=== PATIENT | female | born 1990 | race Caucasian/White ===

== ENCOUNTER 2022-05-10 09:12 | Emergency (ER) | payer MEDICAID, SELFPAY ==
[2022-05-10 09:42] VITALS: BP 105/74; PULSE 84; RESP 16; TEMP 36.6; O2SAT 96; BMI 26.6
--- NOTE | 2022-05-10 11:28 | W.ED.BACK ---
HPI - Back Pain/Injury General: Chief Complaint: Back Pain/Injury Stated Complaint: back pain Time Seen by Provider: 05/10/22 09:14 History of Present Illness: Patient is a 32-year-old female who comes in the ED with lower back pain. Symptoms initially started about 2 months ago and have continued to progress. She states that over the past 4 days her lower back pain is gotten a lot worse and now is radiating down into her right leg. Denies any trauma or injury to cause pain. She rates her pain currently an 8 out of 10. Denies any weakness to lower extremities, pelvic anesthesia or any bladder or bowel incontinence. Associated symptoms: Deny abdominal pain, chills, dysuria, fatigue, fever(s), hematuria, nausea or vomiting Review of Systems Const: Denies: fever(s), chills or fatigue Eyes: Denies: change in vision or eye discomfort ENMT: Denies: throat pain, odynophagia, nasal discharge or nasal congestion Card: Denies: chest pain, palpitations, edema, swelling of feet/ankles, dyspnea on exertion or orthopnea Resp: Denies: dyspnea, productive cough or non-productive cough GI: Denies: abdominal pain, nausea, vomiting, diarrhea, constipation or hematochezia : Denies: flank pain, dysuria or hematuria Musc: Reports: back pain (Lower back pain); Denies: neck pain or extremity swelling Skin/Breast: Denies: rash or new lesions Neuro: Denies: headache(s), numbness in extremities or weakness in extremities PFS ED PFSH: Medical History (Updated 05/10/22 @ 16:04 by RAQUEL Rodriguez) No pertinent family history Surgical History (Updated 05/10/22 @ 16:04 by RAQUEL Rodriguez) No pertinent past surgical history Physical Exam Const: COMMON NORMALS: patient oriented x3 and alert GENERAL APPEARANCE: cooperative HENMT: COMMON NORMALS: normocephalic HEAD & SCALP: normocephalic MOUTH: Normal oral and palatal mucosa present THROAT: posterior oropharynx normal and uvula midline Eye: COMMON NORMALS: Equal, round and reactive pupils present and conjunctivae normal CONJUNCTIVA: Yes conjunctivae normal PUPIL: Yes Equal, round and reactive pupils present Neck/C-Spine: COMMON NORMALS: supple GENERAL: Yes normal visual inspection Resp: COMMON NORMALS: normal respiratory effort, No retractions, No use of accessory muscles and clear to auscultation bilaterally AUSCULTATION: clear to auscultation bilaterally Cardio: COMMON NORMALS: regular rate, regular rhythm, S1 normal heart sound present, S2 normal heart sound present, No gallops present (Cardio), No clicks present (Cardio), No murmurs present (Cardio) and Peripheral pulses 2+ throughout RATE: regular rate RHYTHM: regular rhythm HEART SOUNDS: S1 normal heart sound present and S2 normal heart sound present PERIPHERAL PULSES: Peripheral pulses 2+ throughout GI: COMMON NORMALS: Normal to inspection, nondistended, normoactive bowel sounds present, Soft to palpation, non-tender and no masses PALPATION: Yes Soft to palpation : COMMON NORMALS: Yes no CVA tenderness BLADDER/KIDNEY EXAM: Yes no CVA tenderness Back/Pelvis: COMMON NORMALS: no CVA tenderness LUMBAR SPINE/LOWER BACK: Yes pain with ROM, No lumbar spinal tenderness and Yes paraspinal muscle tenderness Lumbar paraspinal muscle tenderness: right Extremity: COMMON NORMALS: normal to inspection Neuro: COMMON NORMALS: patient oriented x3 SENSORIUM/ORIENTATION: Yes alert GAIT: Yes Normal gait present Skin: GENERAL SKIN EXAM: dry skin Course Vital Signs: Vital signs: Vital Signs Temperature 97.8 F 05/10/22 09:42 Pulse Rate 84 05/10/22 09:42 Respiratory Rate 16 05/10/22 09:42 Blood Pressure 105/74 05/10/22 09:42 Pulse Oximetry 96 05/10/22 09:42 Oxygen Delivery Me thod 05/10/22 09:42 MDM - Back Pain/Injury Medical Decision Making Patient is a 32 old female comes in ED with lower back pain radiates down the right leg. Denies any known injury or trauma to cause pain. Denies cauda equina symptoms. He appears nontoxic in no acute distress. She has right paraspinal muscle tenderness. Rest of exam is benign. She was diagnosed with lumbar radiculopathy and given a dose of Toradol, Norflex and steroid here in the ED. She was discharged home with a prescription for Medrol Dosepak, muscle relaxer and Celebrex. Return to ED precautions given. Follow-up with PCP in the next week for reevaluation. Patient understood and agreed with plan. Discharge Plan Discharge Patient Disposition: Home Clinical Impression: Lumbar radiculopathy Condition: Stable Prescriptions: New Celebrex 100 mg capsule 100 mg PO BID PRN (Reason: pain) Qty: 30 0RF methocarbamol 750 mg tablet 750 mg PO Q8H PRN (Reason: Back muscle spasms and pain) Qty: 30 0RF Medrol (Keshav) 4 mg tablets,dose pack See Rx Instructions .ROUTE .COMPLEX Qty: 21 0RF Rx Instructions: orally per package directions Discharge Orders: Discharge ED (Routine); Ordered 05/10/22 Ordered By: Adalberto Segura Discharge Diet: Regular Discharge Activity: Increase activity as tolerated Patient Instructions: Lumbar Radiculopathy (ED) Activity Restrictions/Additional Instructions: Follow-up with medical provider as directed in the next 7 to 10 days for reevaluation. Take medications as prescribed. You can start taking the first dose of steroid tomorrow since she received injection dose today. Return to the ER or your medical provider if condition worsens. Please read and understand discharge instructions. Thank you for choosing [facility] for your healthcare needs today. Please realize this is an emergency room and that we are providing you with a medical screening exam and this may not be complete and all inclusive of all the testing and or work up that you may need to determine your ailment or severity of your illness. It is very important that you follow up as instructed or that you return to the Emergency Department should you have concerns or if your condition changes or worsens in any way. Coding Level of Care Code ED Technical Sales Representative for Jessenia Powell Exam Comprehensive
[2022-05-10] MEDS: orphenadrine 30 mg/mL Inj 2 mL 60 MG IM (11:44)
[2022-05-10] MEDS: ketorolac 60 mg/2 mL INJ IM (11:44)
[2022-05-10] MEDS: ondansetron 4 MG Tablet PO (12:02)
== END 2022-05-10 12:05 | disposition home or self-care (01) ==
PROVIDERS: Emergency Provider Physician Assistant
DX: M54.16 Radiculopathy, lumbar region (principal)
CPT/HCPCS: 96372; 99284; J1885; J2360; J2930; Q0162

== ENCOUNTER 2022-05-14 12:49 | Outpatient (CLI) | payer MEDICAID, SELFPAY ==
--- NOTE | 2022-05-14 13:01 | XR_ITS ---
WS: [id number] XR lumbar spine 6V w f/e [id number] REASON FOR EXAM: LUMBAR BACK PAIN W/RADICULOPATHY FINDINGS: Minimal rotatory scoliosis convex right. Minimal straightening of the lordosis. No significant vertebral body abnormality. Mild narrowing of the L5-S1 disc space. Mild degenerative changes in the facet joints at L5-S1. No significant listhesis. XR/XR lumbar spine 6V w f/e [id number] IMPRESSION: Mild degenerative spondylosis of the lumbar spine as above.
== END 2022-05-14 12:50 | disposition home or self-care (01) ==
PROVIDERS: PCP Nurse Practitioner Family; Visit Provider Nurse Practitioner Family
DX: M54.16 Radiculopathy, lumbar region (principal); M47.816 Spondylosis without myelopathy or radiculopathy, lumbar region
CPT/HCPCS: 72114

== ENCOUNTER 2022-05-27 09:27 | Outpatient (CLI) | payer MEDICAID, SELFPAY ==
--- NOTE | 2022-05-27 09:36 | MR_ITS ---
WS: [id number] MRI LUMBAR SPINE NONCONTRAST HISTORY: BACK PAIN W/LUMBAR RADICULOPATHY COMPARISON: Radiographs 05/14/2022 TECHNIQUE: Sagittal and axial multisequence imaging is submitted. Normal posterior lumbar alignment. Osteochondrosis inferior endplate of L5. No acute fractures or mar row edema. Mild disc space narrowing and desiccation at L5-S1. Conus terminates normally at L1-2 disc level. L1-L2: Normal. L2-L3: Normal. L3-L4: Mild facet arthritis, LEFT greater than RIGHT. No stenosis. L4-L5: Very small central disc protrusion encroaching upon the ventral thecal sac. Mild ligamentum fl avum hypertrophy. No significant stenosis. L5-S1: Large RIGHT subarticular disc protrusion measures 9 x 15 mm and extends 10 mm superior inferio r. There is significant contact and displacement of the RIGHT thecal sac and the S1 nerve root. No si gnificant contact on the RIGHT L5 nerve root. There is very mild asymmetric disc bulging to the LEFT foramen. Negative retroperitoneum. MR/MR lumbar spine wo con* [id number] IMPRESSION: 1. Large RIGHT subarticular disc protrusion at L5-S1 with significant contact and displacement on the RIGHT thecal sac and S1 nerve root. 2. Mild disc bulging to the LEFT foramen with no stenosis.
== END 2022-05-27 09:28 | disposition home or self-care (01) ==
LOC: RAD 09:28
PROVIDERS: PCP Nurse Practitioner Family; Visit Provider Nurse Practitioner Family
DX: M51.27 Other intervertebral disc displacement, lumbosacral region (principal)
CPT/HCPCS: 72148

== ENCOUNTER 2022-06-18 10:16 | Day surgery (SDC) | payer MEDICAID, SELFPAY ==
[2022-06-15 07:58] VITALS: BMI 24.3
--- NOTE | 2022-06-15 14:17 | P.ANESASSM_ITS ---
Pre-Anesthetic Assessment Height/Weight: Height 1.73 m Weight 72.575 kg Operation Date: 06/18/22 11:45 Proposed Procedures p right L5-S1 NERVE INVASIVE DISCECTOMY 91016/M54.9/M54.16(Right) - Jeff Fishman DO Familial anesthetic complications: none Was Beta Panchito taken within 24 hours: N/A Was Clonidine taken within 24 hours: N/A Social No alcohol and No tobacco Exam alert, oriented x 3, clear to auscultation bilaterally and regular rate & rhythm Airway Submandibular: within normal limits Cervical ROM: within normal limits Mallampati: Class II Dentition: full History/ROS No significant history except as noted Musc/skel Lower Back Pain radicular pain right Anesthetic Plan ASA status: 2 Anesthesia: General Medications/Allergies Home Medications Medication Instructions Recorded Confirmed Last Taken Type methocarbamol 750 mg tablet 750 mg PO Q8H PRN Back muscle 05/10/22 06/15/22 Unkn own Rx spasms and pain #30 tabs hydrocodone 5 mg-acetaminophen 325 1 tab PO Q6H PRN pain 5 days #30 06/10/22 06/15/22 Unknown Rx mg tablet tabs diclofenac potassium 50 mg tablet 50 mg PO TID 06/15/22 06/15/22 Unknown History Allergies Allergy/AdvReac Type Severity Reaction Status Date / Time Penicillins Allergy ALGY-Hives Verified 06/15/22 07:54 PFSH Anesthesia Medical History No pertinent family history Surgical History No pertinent past surgical history Data Anesthesia Cardiac Studies: No Data to Display
[2022-06-18] VITALS (7 sets, daily range): BP systolic 116–132; BP diastolic 70–93; PULSE 80–119; RESP 16–18; TEMP 36.3–36.4; O2SAT 96–100
--- NOTE | 2022-06-18 | XR_ITS ---
WS: [id number] XR lumbar spine 1V [id number] REASON FOR EXAM: Microdiscectomy to the right L5-S1 FINDINGS: Surgical device overlying the right L5-S1 level. No other significant finding. XR/XR lumbar spine 1V [id number] IMPRESSION: Intraoperative lumbar lumbar spine localization as above.
[2022-06-18 10:37] LABS: OR HCG Qualitative Urine Negative (Negative)
--- NOTE | 2022-06-18 10:44 | W.PM.OPSUD ---
Surgery/Procedure H&P Update DATE OF PROCEDURE: June 18, 2022 DATE H&P PERFORMED: 06/03/22 H&P UPDATE INFORMATION: I have reviewed H&P completed within last 30 days, I have examined patient prior to procedure and No changes to prior documentation PREOP DIAGNOSIS: Lumbar radiculopathy, HNP right L5-S1 PLANNED PROCEDURE: Operation Date: 06/18/22 12:05 Proposed Procedures p right L5-S1 NERVE INVASIVE DISCECTOMY 90104/M54.9/M54.16(Right) - Jeff Fishman DO
[2022-06-18] MEDS: clindamycin 900 MG/50 ML PREMIX 100 MG IV (10:56)
[2022-06-18] MEDS: sodium chloride 0.9% 1,000 ML 30 ML IV (11:03)
--- NOTE | 2022-06-18 12:24 | PM.OP ---
Operative Report Date of procedure: June 18, 2022 Pre-op diagnosis: Preop Diagnosis Lumbar radiculopathy, HNP right L5-S1 Post-op diagnosis: same Procedure done: L5-S1 microdiscectomy with laminectomy and partial facetectomy Surgeon: Jeff Fishman Estimated blood loss (mL): 15 Procedure: L5-S1 microdiscectomy with laminectomy and partial facetectomy Patient is brought to the operative suite. After undergoing anesthesia they are placed in the prone position. All areas of impingement are well padded. Patient is then prepped and draped in the normal sterile fashion. A skin incision is made over the L5/S1 level. This is confirmed under c-arm guidance. A series of dilators are passed and the tubular retractor is docked on the L 5 lamina. A bovie is used to clear the soft tissue off the lamina and the L 5/S1 facet joint. A high speed anthony is then used to perform the laminectomy and take down the medial aspect of the L 5/S1 facet joint. A kerrison rongeure was then used to take down the remaining lamina and smooth the edge of the laminectomy up to the point where the ligamentum flavum attaches. Attention was then brought to the medial aspect of the facet joint. The remaining medial aspect of the superior and inferior aspect of the facet joint were taken down with the kerrison from the pedicle of L 5 to S1. The facet joint had significant hypertrophy. Attention was then brought to the Ligamentum Flavum. The ligament was taken down from the lamina of L 5 to S1 and out medially to the remaining facet joint. The ligament was thick. The dura was then exposed. The dura was in good repair. S1 nerve was retracted and diskectomy was performed with micro pitutary. The L5 nerve was then traced with a curette out the L5/S1 foramen and found to be adequately decompressed. The S1 nerve was traced with a curette around the S1 pedicle. The lateral recess was opened with a kerrison helping to further decompress the S1 nerve. Wound is then irrigated copiously with saline and surgiflo is used to stop any bleeding. The tubular retractor is removed and the wound is closed with vicryl and monocryl suture. Glue is then used to protect the wound. A sterile dressing is then placed. Patient was then placed in the supine position and transferred to the PACU in stable condition.
--- NOTE | 2022-06-18 12:51 | P.ANESUD_ITS ---
Pre-Anesthetic Update Pre-Anesthetic Assessment: Date of Surgery/Procedure: 06/18/22 Preop Debby gnosis: Lumbar radiculopathy, HNP right L5-S1 Proposed Procedure: Operation Date: 06/18/22 12:05 Proposed Procedures p right L5-S1 NERVE INVASIVE DISCECTOMY 99890/M54.9/M54.16(Right) - Jeff Fishman, DO Any changes to Pre-Anesthetic Assessment?: No Last Intake: Intake Last Liquid Date 06/17/22 Last Liquid Time 20:30 Last Solid Date 06/17/22 Last Solid Time 20:30 Vitals: Temperature 97.4 F L 06/18/22 12:40 Temperature Source Temporal Artery S can 06/18/22 12:40 Pulse Rate 93 06/18/22 12:40 Pulse Rhythm 06/18/22 10:35 Pulse Strength 3+ Normal 06/18/22 10:35 Respiratory Rate 16 06/18/22 12:40 Blood Pressure 127/70 06/18/22 12:40 Blood Pressure Suki n 89 06/18/22 12:40 Pulse Oximetry 96 06/18/22 12:40 Oxygen Delivery Me thod 06/18/22 12:40 Oxygen Flow Rate 6 06/18/22 12:26 Exam: Pre-Anes Outpt Exam: alert, oriented x 3, clear to auscultation bilaterally and regular rate & rhythm Cardiac Studies: No Data to Display
--- NOTE | 2022-06-18 14:42 | ANE.PACU2 ---
Inpatient post-anesthesia follow up: Airway intact: Yes Vital signs: Temperature 97.4 F Pulse Rate 89 Respiratory Rate 18 Blood Pressure 121/75 Pulse Oximetry 100 Oxygen Delivery Me thod Room Air Oxygen Flow Rate 6 Fraction of Inspir ed Oxygen Hydration adequate: Yes Nausea and vomiting: No Pain level: 3 Mental status: Baseline
== END 2022-06-18 13:50 | disposition home or self-care (01) ==
PROVIDERS: Anesthesiology; PCP Nurse Practitioner Family; Visit Provider Orthopaedic Surgery
PROC: (CPT 63030; principal; 2022-06-18 11:55)
DX: M54.16 Radiculopathy, lumbar region (principal)
CPT/HCPCS: 63030; 72020; 76000; 84703; J1100; J2405; J2704; J2710; J3010; J3490; J7030